=== PATIENT | female | born 1990 | race Caucasian/White ===

== ENCOUNTER 2024-01-29 20:17 | Emergency (ER) | payer OTHER | END 2024-01-29 21:48 | disposition home or self-care (01) | LOC: MW.ED 20:17 | DX: Z71.1 Person with feared health complaint in whom no diagnosis is made (principal); Z75.8 Other problems related to medical facilities and other health care; Z3A.17 17 weeks gestation of pregnancy | CPT/HCPCS: 76815; 76815-26; 99282; 99284 ==

== ENCOUNTER 2024-06-22 17:27 | Inpatient (IN) | payer OTHER ==
[2024-06-22] MEDS ORDERED: Phenylephrine HCl In 0.9% NaCl 1 MG/10 ML Syringe IVPUSH PRN (18:35)
[2024-06-22] MEDS ORDERED: ePHEDrine 50 MG/ML SDV IVPUSH PRN (18:35)
[2024-06-22] MEDS ORDERED: Misoprostol 200 MCG Tab PO PRN (18:40)
[2024-06-22] MEDS ORDERED: Sodium Chloride 0.9% 2.5 ML Syringe FLUSH PRN (18:40)
[2024-06-22] MEDS ORDERED: Butorphanol 2 MG/ML SDV IVPUSH PRN (18:40)
[2024-06-22] MEDS ORDERED: Methylergonovine 0.2 MG/1 ML Amp IM PRN (18:40)
[2024-06-22] MEDS ORDERED: Carboprost Tromethamine 250 MCG/1 mL Vial IM PRN (18:40)
[2024-06-22] MEDS ORDERED: Sodium Chloride 0.9% 20 ML SDV IV PRN (18:40)
[2024-06-22] MEDS ORDERED: Sodium Chloride 0.9% 10 ML Syringe FLUSH PRN (18:40)
[2024-06-22] MEDS ORDERED: Tranexamic Acid IN NACL,ISO-OS 1,000 MG in Premix Bag 1 BAG IV PRN (18:40)
[2024-06-22] MEDS ORDERED: Ropivacaine HCl/PF 400 MG in Premix Bag 1 BAG EPIDUR SCH (18:45)
[2024-06-22] MEDS ORDERED: dexmedeTOMIDine HCl 200 MCG/2 ML SDV EPIDUR SCH (18:45)
[2024-06-22] MEDS ORDERED: Ondansetron 4 MG Tab.DIS PO PRN (18:47)
[2024-06-22 19:02] LABS: HEMATOCRIT 31.4 % (37.0-47.0); HEMOGLOBIN 10.1 g/dL (12.0-16.0); MEAN CORPUSCULAR HEMOGLOBIN 25.3 pg (28.0-32.0); MEAN CORPUSCULAR HGB CONC 32.2 g/dL (32.0-36.0); MEAN CORPUSCULAR VOLUME 78.5 fL (83.0-99.0); MEAN PLATELET VOLUME 11.2 fL (9.4-12.3); PLATELET COUNT,PLT 324 K/uL (150-400); WHITE BLOOD CELL COUNT,WBC 10.21 K/uL (3.9-11.3)
[2024-06-22] MEDS: Lactated Ringers 1,000 ML IV SCH (19:57)
[2024-06-22] MEDS: Water For Irrigation,Sterile 1,000 ML Container IRR PRN (20:26)
[2024-06-22] MEDS: Oxytocin/0.9 % Sodium Chloride 30 UNIT/500 ML BAG IV SCH (20:29)
[2024-06-22] MEDS: Lidocaine 1% 50 ML MDV INJECT PRN (20:38)
[2024-06-22] MEDS ORDERED: oxyCODONE 5 MG Tab PO PRN (20:53)
[2024-06-22] MEDS ORDERED: Acetaminophen 500 MG Tab PO PRN (20:53)
[2024-06-22] MEDS ORDERED: Lanolin 100% Cream 7 GM Tube TOP PRN (20:53)
[2024-06-22 21:14] LABS: PH,UMBILICAL ARTERIAL 7.271 (7.18-7.38)
[2024-06-22 21:15] LABS: PH,UMBILICAL VENOUS 7.364 (7.25-7.45)
[2024-06-23] MEDS: Benzocaine/Menthol 20%-0.5% Spray 78 GM Cannister TOP PRN (00:11)
[2024-06-23] MEDS: Witch Hazel Medicated Pads 40/Jar TOP PRN (00:11)
[2024-06-23] MEDS: Ibuprofen 800 MG Tab PO PRN (00:12)
[2024-06-23 06:52] LABS: HEMATOCRIT 28.6 % (37.0-47.0); HEMOGLOBIN 9.1 g/dL (12.0-16.0)
[2024-06-24] MEDS: Docusate Sodium 100 MG Cap PO PRN (08:13)
== END 2024-06-24 13:25 | disposition home or self-care (01) | DRG 807 ==
LOC: MW.OB 17:27 → OBSVTOIN 20:28 → MW.OB 06-23 01:02
PROVIDERS: ADMIT Obstetrics & Gynecology; ATTEND Obstetrics & Gynecology
PROC: 10E0XZZ Delivery of Products of Conception, External Approach (ICD-10-PCS; principal; 2024-06-22)
PROC: 0HQ9XZZ Repair Perineum Skin, External Approach (ICD-10-PCS; 2024-06-22)
DX: O13.4 Gestational [pregnancy-induced] hypertension without significant proteinuria, complicating childbirth (principal); Z37.0 Single live birth; Z3A.39 39 weeks gestation of pregnancy; O70.0 First degree perineal laceration during delivery
CPT/HCPCS: 36415; 59020; 59409; 82803; 85014; 85018; 85027; 86592; 86850; 86900; 86901; A9270-GY; J2001; J2590; J3490; J7120